=== PATIENT | male | born 1995 | race African-American/Black ===

== ENCOUNTER 2018-04-30 17:38 | Emergency (ER) | payer SELFPAY ==
[~2018-04-30] VITALS: Ht 188 cm; Wt 106.0 kg
[2018-04-30 18:30] VITALS: BP 132/82
== END 2018-04-30 18:54 | disposition home or self-care (01) ==
LOC: ER 17:38
DX: R94.31 Abnormal electrocardiogram [ECG] [EKG] (principal); Z13.89 Encounter for screening for other disorder
CPT/HCPCS: 71045; 93005; 99284